=== PATIENT | female | born 1950 | race Caucasian/White ===

== ENCOUNTER → 2016-04-02 | Outpatient (CLI) | payer BC ==
[2016-04-02 13:41] LABS: Basophils # (auto) 0 uL; Basophils % (auto) 0.5 % (0.0-2.0); Eosinophils # (auto) 0.3 uL; Eosinophils % (auto) 3.4 % (0.0-7.0); Hematocrit 45.1 % (36.0-46.0); Lymphocytes # (auto) 2.5 uL; Lymphocytes % (auto) 26.5 % (10.0-50.0); Mean Corpuscular Hemoglobin 31.4 pg (28.0-32.0); Mean Corpuscular Hgb Conc. 33.3 g/dL (32.0-36.0); Mean Corpuscular Volume 94.3 fL (80.0-100.0); Mean Platelet Volume 10.3 fL (7.4-10.4); Monocytes # (auto) 0.7 uL; Monocytes % (auto) 7.3 % (0.0-12.0); Neutrophils # (auto) 5.9 uL; Neutrophils % (auto) 62.3 % (37.0-80.0); Platelet Count (auto) 206 10^3/uL (140-450); Red Cell Distribution Width 12.8 % (11.6-16.0); SUSPECT VIEW TRANSMISSION; White Blood Cell 9.4 10^3/uL (4.4-10.8)
[2016-04-02 13:43] LABS: Urine Bilirubin Negative (Negative); Urine Blood Negative /uL (Negative); Urine Color Yellow (Yellow); Urine Glucose Normal (Normal); Urine Ketone Negative (Negative); Urine Nitrite Negative (Negative); Urine RBC 1 /hpf (0 - 4); Urine Squamous Epithelial Cell FEW /hpf (<5); Urine Urobilinogen Normal (Negative); Urine pH 5.5 (5.0-8.0)
[2016-04-02 13:58] LABS: Albumin 3.9 g/dL (3.4-5.0); BUN/Creatinine Ratio 22.6; Bilirubin, Total 0.4 mg/dL (0.2-1.0); Calcium 8.9 mg/dL (8.5-10.1); Total Protein 7.7 g/dL (6.4-8.2)
== END | disposition home or self-care (01) ==
LOC: LAB 12:59
PROVIDERS: ATTEND Internal Medicine
DX: Z00.00 Encounter for general adult medical examination without abnormal findings (principal); E55.9 Vitamin D deficiency, unspecified
CPT/HCPCS: 36415; 80053; 80061; 81001; 82043; 82306; 83036; 84443; 85025

== ENCOUNTER → 2016-09-10 | Day surgery (SDC) | payer BC ==
[2016-09-09 08:02] LABS: Basophils # (auto) 0.1 uL; Basophils % (auto) 0.7 % (0.0-2.0); CONDITION Y; Eosinophils # (auto) 0.2 uL; Eosinophils % (auto) 2.6 % (0.0-7.0); Hematocrit 42.5 % (36.0-46.0); Hemoglobin 14.6 g/dL (12.2-16.2); Lymphocytes % (auto) 31.4 % (10.0-50.0); Mean Corpuscular Hemoglobin 32.2 pg (28.0-32.0); Mean Corpuscular Hgb Conc. 34.3 g/dL (32.0-36.0); Mean Corpuscular Volume 93.7 fL (80.0-100.0); Mean Platelet Volume 10.1 fL (7.4-10.4); Monocytes # (auto) 0.8 uL; Monocytes % (auto) 8.1 % (0.0-12.0); Neutrophils # (auto) 5.4 uL; Neutrophils % (auto) 57.2 % (37.0-80.0); Platelet Count (auto) 232 10^3/uL (140-450); Red Cell Distribution Width 13.4 % (11.6-16.0); White Blood Cell 9.4 10^3/uL (4.4-10.8)
[2016-09-09 08:42] LABS: INR 0.93 (0.9-1.15); Partial Thromboplastin Time 27.7 sec (22.64-33.71); Prothrombin Time 10.1 sec (9.37-12.3)
[~2016-09-10] VITALS: Ht 162.6 cm; Wt 93.0 kg
[~2016-09-10] MED LIST: ATEN100T PO; FLUMAZENIL 0.1 MG/ML INJ 10ML MDV IV ONE; LIDOCAINE VISCOUS 2% 15ML UD ONE; NALOXONE HCL 0.4 MG/ML VIAL ONE; OLME0.09 PO; SODIUM CHLORIDE LOCK 10 ML ONE; diphenhdrAMINE HCL 50 MG/1 ML VL ONE; fentaNYL CITRATE 100 MCG/2 ML VL ONE
[2016-09-10] MEDS: MIDAZOLAM HCL 5 MG/ML-1ML VIAL ONE ×3 (08:46→09:00)
[2016-09-10] MEDS: fentaNYL CITRATE 100 MCG/2 ML VL ONE ×3 (08:46→09:00)
[2016-09-10 09:30] VITALS: BP 109/77
== END | disposition home or self-care (01) ==
LOC: GI 07:58
PROVIDERS: ATTEND Internal Medicine Gastroenterology
DX: Z12.11 Encounter for screening for malignant neoplasm of colon (principal); E66.9 Obesity, unspecified; E11.9 Type 2 diabetes mellitus without complications; Z87.891 Personal history of nicotine dependence; Z90.710 Acquired absence of both cervix and uterus
CPT/HCPCS: 36415; 43239; 45378; 82962; 85025; 85610; 85730; J1200; J2250; J3010

== ENCOUNTER → 2016-10-01 | Outpatient (CLI) | payer BC ==
[~2016-10-01] MED LIST changes: -FLUMAZENIL 0.1 MG/ML INJ 10ML MDV IV ONE; -LIDOCAINE VISCOUS 2% 15ML UD ONE; -NALOXONE HCL 0.4 MG/ML VIAL ONE; -SODIUM CHLORIDE LOCK 10 ML ONE; -diphenhdrAMINE HCL 50 MG/1 ML VL ONE; -fentaNYL CITRATE 100 MCG/2 ML VL ONE
== END | disposition home or self-care (01) ==
LOC: LAB 15:45
PROVIDERS: ATTEND Internal Medicine Gastroenterology
DX: Z12.11 Encounter for screening for malignant neoplasm of colon (principal)
CPT/HCPCS: 82270

== ENCOUNTER → 2018-05-30 | Outpatient (CLI) | payer BC ==
[2018-05-30 12:09] LABS: Basophils # (auto) 0.1 uL; Basophils % (auto) 0.9 % (0.0-2.0); Eosinophils # (auto) 0.3 uL; Eosinophils % (auto) 2.8 % (0.0-7.0); Hemoglobin 15.8 g/dL (12.2-16.2); Lymphocytes # (auto) 2.6 uL; Lymphocytes % (auto) 28.5 % (10.0-50.0); Mean Corpuscular Hgb Conc. 34.4 g/dL (32.0-36.0); Mean Corpuscular Volume 93.1 fL (80.0-100.0); Monocytes # (auto) 0.7 uL; Monocytes % (auto) 7.6 % (0.0-12.0); Neutrophils # (auto) 5.4 uL; Neutrophils % (auto) 60.2 % (37.0-80.0); Nucleated Red Blood Cells % 0.1 %; Platelet Count (auto) 216 10^3/uL (140-450); Red Blood Cells 4.95 10^6/uL (4.0-5.20); Red Cell Distribution Width 13.2 % (11.8-14.3)
[2018-05-30 12:11] LABS: Urine Bacteria FEW /hpf (None Seen); Urine Blood Negative /uL (Negative); Urine Specific Gravity 1.009 (1.001-1.035); Urine WBC 8 /hpf (0 - 5)
[2018-05-30 12:30] LABS: Calcium 8.7 mg/dL (8.5-10.1); Potassium 3.9 mmol/L (3.5-5.1)
[2018-05-30 12:37] LABS: Albumin 4.1 g/dL (3.4-5.0); BUN/Creatinine Ratio 27.8; Bilirubin, Total 0.7 mg/dL (0.2-1.0)
== END | disposition home or self-care (01) ==
LOC: LAB 11:05
PROVIDERS: ATTEND Physician Assistant
DX: E05.90 Thyrotoxicosis, unspecified without thyrotoxic crisis or storm (principal); I10 Essential (primary) hypertension; E11.29 Type 2 diabetes mellitus with other diabetic kidney complication; R80.9 Proteinuria, unspecified; Z87.891 Personal history of nicotine dependence
CPT/HCPCS: 36415; 80053; 80061; 81001; 83036; 85025

== ENCOUNTER → 2018-09-04 | Outpatient (CLI) | payer BC | END | disposition home or self-care (01) | LOC: LAB 14:34 | PROVIDERS: ATTEND Physician Assistant | DX: E11.9 Type 2 diabetes mellitus without complications (principal); L30.8 Other specified dermatitis; E05.90 Thyrotoxicosis, unspecified without thyrotoxic crisis or storm | CPT/HCPCS: 36415; 85652; 86038; 86141; 86431 ==

== ENCOUNTER → 2020-09-17 | Outpatient (CLI) | payer MEDICARE ==
[2020-09-17 11:58] LABS: Urine WBC None Seen /hpf (0 - 5)
[2020-09-17 12:08] LABS: Basophils # (auto) 0.1 10 ^3/uL (0-0.2); Basophils % (auto) 1.1 % (0.0-2.0); Eosinophils # (auto) 0.3 10 ^3/uL (0-0.8); Eosinophils % (auto) 3.7 % (0.0-7.0); Hematocrit 41.8 % (36.0-46.0); Hemoglobin 14.3 g/dL (12.2-16.2); Lymphocytes # (auto) 2.5 10 ^3/uL (0.4-5.4); Lymphocytes % (auto) 30.9 % (10.0-50.0); Mean Corpuscular Hemoglobin 31.1 pg (28.0-32.0); Mean Corpuscular Hgb Conc. 34.2 g/dL (32.0-36.0); Mean Corpuscular Volume 90.8 fL (80.0-100.0); Monocytes # (auto) 0.7 10 ^3/uL (0-1.3); Monocytes % (auto) 8.8 % (0.0-12.0); Neutrophils # (auto) 4.5 10 ^3/uL (1.6-8.6); Neutrophils % (auto) 55.5 % (37.0-80.0); Nucleated Red Blood Cells % 0.1 %; Red Cell Distribution Width 14.8 % (11.8-14.3); White Blood Cell 8.2 10^3/uL (4.4-10.8)
[2020-09-17 12:41] LABS: Urine Bacteria NONE SEEN /hpf (None Seen); Urine Blood Negative /uL (Negative); Urine Specific Gravity 1.005 (1.001-1.035)
[2020-09-17 12:55] LABS: Albumin 3.6 g/dL (3.4-5.0); Calcium 8.8 mg/dL (8.5-10.1); Magnesium 1.9 mg/dL (1.6-2.6); Potassium 3.6 mmol/L (3.5-5.1)
[2020-09-17 12:59] LABS: BUN/Creatinine Ratio 28.9; Bilirubin, Total 0.7 mg/dL (0.2-1.0); Total Protein 7.7 g/dL (6.4-8.2)
== END | disposition home or self-care (01) ==
LOC: LAB 11:43
PROVIDERS: ATTEND Nurse Practitioner Family
DX: I12.9 Hypertensive chronic kidney disease with stage 1 through stage 4 chronic kidney disease, or unspecified chronic kidney disease (principal); E11.22 Type 2 diabetes mellitus with diabetic chronic kidney disease; N18.30 Chronic kidney disease, stage 3 unspecified; E11.29 Type 2 diabetes mellitus with other diabetic kidney complication; E05.90 Thyrotoxicosis, unspecified without thyrotoxic crisis or storm; R80.9 Proteinuria, unspecified; Z79.899 Other long term (current) drug therapy
CPT/HCPCS: 36415; 80053; 80061; 81001; 82043; 82306; 83036; 83735; 84443; 85025

== ENCOUNTER → 2020-10-30 | Outpatient (CLI) | payer MEDICARE ==
[2020-10-30 12:50] LABS: Basophils # (auto) 0.1 10 ^3/uL (0-0.2); Eosinophils # (auto) 0.3 10 ^3/uL (0-0.8); Eosinophils % (auto) 3.1 % (0.0-7.0); Hematocrit 42.8 % (36.0-46.0); Hemoglobin 14.9 g/dL (12.2-16.2); Lymphocytes # (auto) 2.7 10 ^3/uL (0.4-5.4); Lymphocytes % (auto) 29.2 % (10.0-50.0); Mean Corpuscular Hemoglobin 31.2 pg (28.0-32.0); Mean Corpuscular Hgb Conc. 34.9 g/dL (32.0-36.0); Mean Corpuscular Volume 89.6 fL (80.0-100.0); Monocytes # (auto) 0.8 10 ^3/uL (0-1.3); Neutrophils # (auto) 5.2 10 ^3/uL (1.6-8.6); Neutrophils % (auto) 57.7 % (37.0-80.0); Red Blood Cells 4.77 10^6/uL (4.0-5.20); Red Cell Distribution Width 14.3 % (11.8-14.3); White Blood Cell 9.1 10^3/uL (4.4-10.8)
[2020-10-30 13:31] LABS: Potassium 3.2 mmol/L (3.5-5.1)
[2020-10-30 13:37] LABS: Albumin 3.5 g/dL (3.4-5.0); BUN/Creatinine Ratio 25.3; Bilirubin, Total 0.7 mg/dL (0.2-1.0); Calcium 8.7 mg/dL (8.5-10.1); Total Protein 7.8 g/dL (6.4-8.2)
== END | disposition home or self-care (01) ==
LOC: LAB 12:30
PROVIDERS: ATTEND Nurse Practitioner Family
DX: R19.7 Diarrhea, unspecified (principal); R10.10 Upper abdominal pain, unspecified
CPT/HCPCS: 36415; 80053; 82150; 83690; 85025; 87045; 87177

== ENCOUNTER → 2021-11-13 | Outpatient (CLI) | payer MEDICARE ==
[~2021-11-13] MED LIST changes: -OLME0.09 PO; +OLME1TAB71 PO
[2021-11-13 13:19] LABS: Basophils # (auto) 0.1 10 ^3/uL (0-0.2); Basophils % (auto) 0.6 % (0.0-2.0); Eosinophils # (auto) 0.3 10 ^3/uL (0-0.8); Eosinophils % (auto) 3.1 % (0.0-7.0); Hematocrit 45.6 % (36.0-46.0); Lymphocytes # (auto) 2.8 10 ^3/uL (0.4-5.4); Lymphocytes % (auto) 32.7 % (10.0-50.0); Mean Corpuscular Hemoglobin 29.5 pg (28.0-32.0); Mean Corpuscular Hgb Conc. 32.8 g/dL (32.0-36.0); Monocytes # (auto) 0.7 10 ^3/uL (0-1.3); Monocytes % (auto) 8.6 % (0.0-12.0); Neutrophils # (auto) 4.8 10 ^3/uL (1.6-8.6); Red Blood Cells 5.07 10^6/uL (4.0-5.20); Red Cell Distribution Width 14.1 % (11.8-14.3); White Blood Cell 8.7 10^3/uL (4.4-10.8)
[2021-11-13 13:40] LABS: Calcium 9.4 mg/dL (8.5-10.1); Potassium 4.5 mmol/L (3.5-5.1)
[2021-11-13 13:45] LABS: Bilirubin, Total 0.7 mg/dL (0.2-1.0); Total Protein 7.6 g/dL (6.4-8.2)
== END | disposition home or self-care (01) ==
LOC: LAB 12:49
PROVIDERS: ATTEND Nurse Practitioner Family
DX: I10 Essential (primary) hypertension (principal); E11.9 Type 2 diabetes mellitus without complications; E05.91 Thyrotoxicosis, unspecified with thyrotoxic crisis or storm; Z00.00 Encounter for general adult medical examination without abnormal findings
CPT/HCPCS: 36415; 80053; 80061; 83036; 84439; 84443; 85025

== ENCOUNTER → 2023-07-22 | Outpatient (CLI) | payer OTHER ==
[~2023-07-22] MED LIST changes: -OLME1TAB71 PO; +OLME20TA67 PO
[2023-07-22 15:07] LABS: Basophils # (auto) 0.1 10 ^3/uL (0-0.2); Eosinophils # (auto) 0.3 10 ^3/uL (0-0.8); Eosinophils % (auto) 2.7 % (0.0-7.0); Hematocrit 46.8 % (36.0-46.0); Lymphocytes # (auto) 3.2 10 ^3/uL (0.4-5.4); Lymphocytes % (auto) 31.3 % (10.0-50.0); Mean Corpuscular Hemoglobin 30.8 pg (28.0-32.0); Mean Corpuscular Hgb Conc. 34.2 g/dL (32.0-36.0); Monocytes # (auto) 0.9 10 ^3/uL (0-1.3); Monocytes % (auto) 8.5 % (0.0-12.0); Neutrophils # (auto) 5.8 10 ^3/uL (1.6-8.6); Neutrophils % (auto) 56.5 % (37.0-80.0); Nucleated Red Blood Cells % 0.5 %; Red Cell Distribution Width 13.9 % (11.8-14.3); White Blood Cell 10.3 10^3/uL (4.4-10.8)
[2023-07-22 16:05] LABS: Creatinine, Urine 70.16 mg/dL (30.0-125.0)
[2023-07-22 16:08] LABS: Alanine Aminotransferase 35 U/L (7-40); Albumin 4.5 g/dL (3.2-4.8); Alkaline Phosphatase 105 U/L (46-116); Anion Gap 6 (5-15); Aspartate Aminotransferase 38 U/L (13-40); BUN/Creatinine Ratio 19.4 (10.0-20.0); Bilirubin, Total 0.8 mg/dL (0.2-1.0); Blood Urea Nitrogen 18 mg/dL (9-23); Calcium 9.7 mg/dL (8.5-10.1); Carbon Dioxide 27 mmol/L (20-30); Chloride 104 mmol/L (98-107); Cholesterol 163 mg/dL (< 200); Glucose 192 mg/dL (74-106); HDL Cholesterol 44 mg/dL (40-59); LDL Cholesterol 101 mg/dL (< 100); Potassium 4.1 mmol/L (3.5-5.1); Sodium 137 mmol/L (136-145); Triglycerides 133 mg/dL (< 150)
[2023-07-22 16:09] LABS: Total Protein 7.6 g/dL (5.7-8.2)
== END | disposition home or self-care (01) ==
LOC: LAB 14:42
DX: I10 Essential (primary) hypertension (principal); E11.29 Type 2 diabetes mellitus with other diabetic kidney complication; E05.90 Thyrotoxicosis, unspecified without thyrotoxic crisis or storm
CPT/HCPCS: 36415; 80053; 80061; 82043; 82570; 83036; 84439; 84443; 85025

== ENCOUNTER 2024-11-29 14:13 | Outpatient (CLI) | payer MEDICARE ==
[2024-11-29 16:30] LABS: Microalb/Creat Ratio, Urine 453.0
[2024-11-29 16:32] LABS: Albumin 4.4 g/dL (3.2-4.8); Alkaline Phosphatase 90 U/L (46-116); Anion Gap 11 (5-15); BUN/Creatinine Ratio 13.2 (10.0-20.0); Blood Urea Nitrogen 10 mg/dL (9-23); Calcium 9.1 mg/dL (8.7-10.4); Carbon Dioxide 24 mmol/L (20-31); Chloride 102 mmol/L (98-107); Potassium 3.8 mmol/L (3.5-5.1); Sodium 137 mmol/L (136-145); Total Protein 7.6 g/dL (5.7-8.2)
[2024-11-29 16:33] LABS: Bilirubin, Total 0.7 mg/dL (0.2-1.0); Cholesterol 148 mg/dL (< 200); HDL Cholesterol 42 mg/dL (40-59)
[2024-11-29 16:36] LABS: Alanine Aminotransferase 41 U/L (7-40); Glucose 246 mg/dL (74-106); Triglycerides 175 mg/dL (< 150)
== END 2024-11-29 17:00 | disposition home or self-care (01) ==
LOC: LAB 14:13
PROVIDERS: ATTEND Nurse Practitioner Family
DX: I10 Essential (primary) hypertension (principal); E11.29 Type 2 diabetes mellitus with other diabetic kidney complication; E66.9 Obesity, unspecified; Z00.01 Encounter for general adult medical examination with abnormal findings; Z79.899 Other long term (current) drug therapy
CPT/HCPCS: 36415; 80053; 80061; 82043; 82306; 82570; 83036; 84443

== ENCOUNTER 2025-01-22 08:48 | Outpatient (CLI) | payer MEDICARE ==
[~2025-01-22] VITALS: Ht 165.1 cm; Wt 86.2 kg
[2025-01-22] MEDS: REGADENOSON 0.4 MG/5 ML SYRG IV ONE ×2 (10:37→10:38)
--- NOTE | 2025-01-22 12:20 | DVHSR ---
APPROVED REPORT Exam: Nuclear Stress Test BMI: 0 Stress Test Details HR Max Heart Rate (APMHR): 144.534202 bpm Target HR (85% APMHR): 122.628343 bpm BP ECG Stress ECG Conclusion lvef 64% normal perfusion scan no ischemia NM EXAM: Myocardial Perfusion REST/STRESS Imaging Protocol: Rest Tc-99m/Stress Tc-99m 1 day Resting Data Rest SPECT myocardial perfusion imaging was performed in supine position 45 minutes following the intravenous injection of 9.4 mCi of Tc-99m Sestamibi. Time of rest injection: 09:31 Date: 01/22/2025 Time of rest imagin:16 Date: 01/22/2025 Administration Route: IV Administration Site: Right Arm Pharmacologic Stress Pharmacologic stress test was performed by injecting Regadenoson 0.4 mg IV push followed by the intravenous injection of 32.8 mCi of Tc-99m Sestamibi. Time of stress injection: 10:38 Date: 01/22/2025 Time of stress imagin:38 Date: 01/22/2025 Administration Route: IV Administration Site: Right Arm Gated Stress SPECT was performed 60 minutes after stress injection. The images were gated to evaluate regional wall motion and calculate left ventricular ejection fraction. Stress only was performed in the Supine position. Nuclear Conclusion Nuclear Findings: negative for ischemia lvef 64% normal perfusion scan no ischemia
== END 2025-01-22 17:00 | disposition home or self-care (01) ==
LOC: XYW 08:48
PROVIDERS: ATTEND Internal Medicine
DX: Z01.810 Encounter for preprocedural cardiovascular examination (principal); R00.1 Bradycardia, unspecified
CPT/HCPCS: 78452; 93017; A9500; J2785